=== PATIENT | male | born 1985 | race Caucasian/White ===

== ENCOUNTER 2021-02-06 09:40 | Outpatient (CLI) | payer OTHER ==
[~2021-02-06 09:40] MED LIST: MIRALAX510 GM PO; SURFAK240 M1 PO; ULTRACET PO
== END 2021-02-06 10:05 | disposition home or self-care (01) ==
LOC: OFIC 805 09:40
PROVIDERS: ATTEND Otolaryngology Otology & Neurotology
DX: J02.8 Acute pharyngitis due to other specified organisms (principal); K21.9 Gastro-esophageal reflux disease without esophagitis